=== PATIENT | male | born 2000 | race Hispanic/Latino ===

== ENCOUNTER 2025-06-30 00:35 | Emergency (ER) | payer SELFPAY ==
[2025-06-30] MEDS ORDERED: Bacitracin 1 PK ONE (01:14)
== END 2025-06-30 01:28 | disposition home or self-care (01) ==
LOC: CSHERS 00:35
DX: S51.011A Laceration without foreign body of right elbow, initial encounter (principal); V49.3XXA Car occupant (driver) (passenger) injured in unspecified nontraffic accident, initial encounter
CPT/HCPCS: 12002; 99283